=== PATIENT | female | born 1960 | race Caucasian/White ===

== ENCOUNTER 2024-06-11 06:24 | Day surgery (SDC) | payer OTHER, SELFPAY ==
[2024-06-05 10:20] VITALS: BMI 25.4
[2024-06-11] VITALS (15 sets, daily range): BP systolic 105–132; BP diastolic 55–74; PULSE 72–100; RESP 15–21; TEMP 35.9–36.9; O2SAT 94–100; BMI 24.6; BMI 27.4
--- NOTE | 2024-06-11 | PATH_ITS ---
[facility] Accession Number: [id number] No. of containers..01 Tissue . 01 Material submitted: . uterus - CERVIX, UTERUS, BILATERAL FALLOPIAN TUBES, OVARIES . 01 Diagnosis: CERVIX, UTERUS, BILATERAL FALLOPIAN TUBES AND OVARIES, LAPAROSCOPIC TOTAL HYSTERECTOMY AND BILATERAL SALPINGO-OOPHORECTOMY (WEIGHT 48 GRAMS): Cervix with no significant histomorphologic abnormality. Endocervix with no significant histomorphologic abnormality. Endometrium with features of cystic atrophy; negative for endometrioid intraepithelial neoplasia or malignancy. Myometrium with adenomyosia. Uterine serosa with no significant histomorphologic abnormality. Right fallopian tube with features of previous tubal ligation at gross examination and with benign paratubal cysts (up to 6 mm); negative for significant atypia. Left fallopian tube with features of previous tubal ligation at gross examination and with benign paratubal cysts (up to 6 mm); negative for significant atypia. Right ovary with small, benign inclusion cysts; negative for significant atypia. Left ovary with small, benign inclusion cysts; negative for significant atypia. [facility] 06/18/2024 1234 Local . 01 Electronically signed: . Tereza oBrges MD, Pathologist NPI- [id number] . 01 Gross description: . Received in formalin with two identifiers and cervix, uterus, bilateral fallopian tubes and ovaries, is an intact uterus (48 grams, 7.9 cm superior to inferior, 4.5 cm medial to lateral, 2.5 cm anterior to posterior) with attached cervix (2.4 x 2.4 cm), left fallopian tube (5.2 x 0.7 cm), left ovary (4 grams, 4.3 x 1.2 x 0.9 cm), right fallopian tube (4.4 x 0.4 cm), right ovary (2 grams, 2.6 x 1.4 x 1.0 cm). . The ectocervix is pink-de león and smooth with a patulous os 0.7 cm in diameter. The anterior paracervical margin is inked blue while the posterior paracervical margin is inked black. The serosa is de león and smooth with no evidence of hemorrhage or adhesion identified. The endocervical canal has de león herringbone mucosa and measures 2.5 cm in length. The endometrial cavity measures 1.6 cm from cornu to cornu, and 3.7 cm in length with de león velvety endometrium that averages 0.1 cm thick. The myometrium is de león and mildly trabecular and up to 1.3 cm in maximum thickness with no lesions identified. . Both tubes have violaceous, smooth serosa with cystic structures up to 0.6 cm in greatest dimension filled with cloudy serous fluid. The left tube is inked blue while the right tube is inked green. Both tubes have attached clips consistent with previous tubal ligation. The remaining lumen are stellate and unremarkable. . Both ovaries have a de león, cerebriform external surface with the left ovary inked blue and the right ovary inked green. The cut surfaces are physiologic and unremarkable with no cysts or lesions identified. . Information Technology Architect sections are submitted as follows: A1: Anterior cervix. A2: Posterior cervix. A3: Anterior full thickness section. A4: Posterior full thickness section. A5: Left fallopian tube to include one-half of bisected fimbriae and cross-sections. A6: Right fallopian tube to include one-half of bisected fimbriae and corss-sections. A7: Left ovary. A8: Right ovary. ([id number]) /TIMOTHY 06/14/2024 0402 Local . 01 Pathologist provided ICD-10: N81.10 . 01 CPT . 414927 Specimen Comment: A courtesy copy of this report has been sent to [phone] Performed at: [address] [address] [address], [place], [place] [id number] MD Avinash Stover MD Phone: [phone]
[2024-06-11] MEDS: ACETAMINOPHEN 325 MG TABLET 975 MG PO (06:55)
[2024-06-11] MEDS: SCOPOLAMINE 1 PATCH TOP (06:55)
[2024-06-11] MEDS: LACTATED RINGERS 1,000 ML 42 ML IV ×2 (06:55→09:34)
--- NOTE | 2024-06-11 07:33 | PM.PREOP ---
Pre-operative Note COVID-19 COVID-19 status: Not tested Interval Note History & Physical reviewed/Exam performed by Physician: Yes Changes to H&P: No
[2024-06-11] MEDS: CEFAZOLIN 2 GM/100 ML PREMIX 100 ML IV (08:02)
[2024-06-11] MEDS: BUPIVACAINE 0.5% W/ EPI (PF) 10 ML VIAL 30 ML INJ (08:31)
[2024-06-11] MEDS: ROPIVACAINE 0.2% PF 2 MG/ML 10ML AMP 20 ML INJ (10:24)
--- NOTE | 2024-06-11 11:24 | P.OP_ITS ---
Operative Date/Time/Diagnoses Date of procedure: 06/11/24 Time of procedure: 08:00 Pre-op diagnosis: Stage III cystocele Stage II uterovaginal prolapse Post-op diagnosis: same Procedure & Clinicians Procedure: Procedures Operation Date: 06/11/24 07:45 Actual Procedure Side Surgeon p Laparoscopic Total Hysterectomy with bilateral salipingo-oophorectomy s Laparoscopic uterosacral ligament vault suspension Fawad Douglas MD s Anterior colporrhaphy Fawad Douglas MD Indications: Karrie is a 64-year-old , LMP at age 49, who presents with a several day history of what she believes is vaginal prolapse. She was seen in the urgent care clinic a few days ago and that suspicion was confirmed. 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 She has not had any postmenopausal bleeding and is not on hormone replacement therapy. Obstetrical history is notable for 3 spontaneous vaginal births with her largest being 9 lb. She did experienced obstetrical trauma with each delivery. Following her 3rd delivery she had stress urinary incontinence which was treated with performance of a Butcher procedure. Patient has minimal BRENDEN now. The patient is sexually active. Pap obtained and submitted and is normal. We had an extended discussion about pelvic organ prolapse, the nature of her specific prolapse issues, atrophic vaginitis, and options for treatment/mitigation of her pelvic organ prolapse and related symptoms. We di scussed surgery but we also had an extensive discussion on pessary use including its potential benefits and use fundus for patients who have pqcg-ti-oylegqmm prolapse and prefer to avoid surgery. She had numerous questions which were answered during the course of our discussion and she was provided with written information regarding pessary use pelvic organ prolapse, and estrogen vaginal support. After consideration of all options, the patient has decided to proceed with total laparoscopic hysterectomy with bilateral salpingo-oophorectomy, laparoscopic uterosacral ligament vault suspension, and anterior colporrhaphy. She presents today for her scheduled surgery. Surgeon: Fawad Douglas Sql Ssrs Developer: Ritu Cao Anesthesia Type: General Operative Notes Findings: The uterus is small, normal in size and shape, and mobile. There were no abn ormalities of the anterior cul-de-sac. The tubes and ovaries both appeared normal. The remainder of the abdomen and pelvis were normal to laparoscopic visualization. A stage III cystocele is present, and second-degree uterovaginal prolapse is noted. First-degree rectocele is present asymptomatic. Closure Type: primary Specimen(s): right tube & ovary and uterus Applied: catheter Estimated blood loss (mL): 50 Blood products transfused: none Procedure in detail: With the patient in modified dorsal lithotomy position preparations were made by prepping and draping the patient in usual manner for vaginal surgery and insertion of Ram catheter. A pre-surgical time-out was then taken in accordance with [facility] [place] policy. A bivalve speculum was then placed in the vagina and the cervix visualized. A weighted speculum was inserted in the vagina and the anterior vaginal wall inspected. A Ram catheter was inserted in the bladder and the UVJ was identified by palpation of the Ram bulb. The anterior vaginal wall was inspected and the midline infiltrated with 0.5% Marcaine with epinephrine all the way from the urethrovesical junction to the cervical vaginal reflection. The midline was then incised with a scalpel and the mucosa dissected laterally on both sides so as to expose the lateral aspect the pubis cervical fascia and the bladder base. A 3 layer plication of these tissues was then carried out with 0 Vicryl interrupted and reduction of the cystocele was excellent. Done in portion of vaginal mucosa was then excised. The uppermost portion of the incision was closed with 0 Vicryl interrupted and the lower portion closed with 0 Vicryl in a running interlocking stitch. Hemostasis was excellent. The anterior lip of the cervix was then grasped with a single-tooth tenaculum. The uterus was sounded to 7 cm, the endocervical canal dilated slightly, and a VCare uterine manipulator with a small colpotomy cup was placed. The umbilicus was then infiltrated with 0.5% Marcaine with epinephrine. A 1 cm umbilical incision was made transversely and a Veress needle was used to insufflate the abdominal cavity with carbon dioxide. Once the abdomen was appropriately insufflated, a 5 mm trocar and sleeve were then placed through the umbilical incision. The scope was placed through the trocar and the initial assessment of the intra-abdominal contents carried out. A 2nd and 3rd 5 mm port was then placed 1st in the right mid quadrant from then the left mid quadrant by infiltration of the skin and subcutaneous tissues, a 1 cm transverse incision and insertion of the 5 mm bladeless port. A 4th 5 mm trocar was introduced deep in the right lower quadrant in a similar fashion. Using a 4 puncture technique, the abdomen and pelvis were inspected laparoscopy and photographically documented. The uterosacral ligaments were identified on both sides and the lateral edges of the uterosacral ligaments were marked with small dots created by monopolar cautery on cutting current at 20 w so as to be able to identify the lateral margins of the uterosacral ligaments at the time of uterosacral vault suspension. Uterus is mobilized with the VCare manipulator and attention turned to the left adnexa. The distal tube was then grasped and the fimbria varicose divided after coagulation with the PowerSeal device. The dissection was then carried out toward the cornua and the fallopian tube amputated. The tube was removed through a 5 mm port and dissection was then carried down using the PowerSeal device so as to divide the utero-ovarian ligament and the round ligament with blunt and sharp dissection of the broad down to the level of the uterine artery. The uterine artery was then skeletonized after development of a bladder flap, coagulated, and divided. Once hemostasis was assured on the left side attention was turned to the right and the tube, utero-ovarian ligament, round ligament, and broad ligament were dissected in a fashion exactly the same as it had been on the left. The right uterine artery was then visualized after skeletonization and coagulated and divided. The uterus was seen to genaro after coagulation of both your arteries and the cup was identified through the vaginal muscularis at its insertion with the body of the cervix. Circumferential excision of the vaginal cup was accomplished without difficulty using monopolar current and the uterus mobilized. The uterus was then removed through the vagina and the vaginal cuff was closed with a 2-0 Stratafix suture introduced through the vaginal canal and incorporating the distal aspects of the uterosacral ligaments on both sides. Hemostasis was excellent, the abdomen was re-insufflated, and the pelvis inspected laparoscopically. Using 2-0 Ethibond suture, 2 sutures were placed on either side so as to incorporate the more proximal portions of the uterosacral ligament on each side to the vaginal cuff. Each suture was tied securely in place with extracorporeal knot pusher. The pelvis was inspected for any abnormality or bleeding, and the ureters were each seen to be peristalsing freely. 20 cc of ropivacaine were instilled into the posterior cul-de-sac. With complete hemostasis assured, the pneumoperitoneum was vented and the ports removed. All of the 5 mm ports were then closed with 4-0 Monocryl on the skin using inverted interrupted sutures. Skin glue was placed and after the glue was dried, an appropriate dressing was applied. Speculum exam showed no vaginal bleeding with excellent suspension of the vaginal apex and anterior vaginal wall. The posterior vaginal wall had minimal laxity in was not felt to warrant repair at this point. The case was then terminated, the patient awakened, and then transferred to PACU after having tolerated the procedure well. Complications: none Post-operative Condition: stable Disposition: PACU Plan for aftercare: Routine PACU care with plans for follow-up in 2 weeks.
[2024-06-11] MEDS: fentaNYL 100 MCG/2 ML INJ IV ×3 (11:31→11:45)
[2024-06-11] MEDS: OXYCODONE IR 5 MG TABLET PO ×3 (11:33→18:12)
[2024-06-11] MEDS: hydrOXYzine HCL 25 MG TABLET PO (11:33)
[2024-06-11] MEDS: ONDANSETRON 4 MG/2 ML INJ IV (11:33)
[2024-06-11] MEDS: HYDROMORPHONE 1 MG INJ IV ×3 (11:33→11:45)
[2024-06-11] MEDS: ACETAMINOPHEN 325 MG TABLET 650 MG PO (15:45)
[2024-06-11] MEDS: LACTATED RINGERS 1,000 ML 100 ML IV (15:46)
[2024-06-11] MEDS: NICOTINE 21 MG PATCH TOP (18:12)
[2024-06-11] MEDS: KETOROLAC 30 MG/ML VIAL IV (19:48)
[2024-06-11] MEDS: METFORMIN XR 500 MG TABLET PO (20:35)
[2024-06-11] MEDS: ATORVASTATIN 20 MG TABLET 10 MG PO (20:35)
[2024-06-11] MEDS: lisinopriL 20 MG TABLET 10 MG PO (20:36)
[2024-06-12] MEDS: ACETAMINOPHEN 325 MG TABLET 650 MG PO (06:36)
[2024-06-12] MEDS: PANTOPRAZOLE DR 20 MG TABLET PO (06:36)
[2024-06-12] MEDS: KETOROLAC 30 MG/ML VIAL IV (06:36)
[2024-06-12 07:40] VITALS: BP 103/46; PULSE 82; RESP 16; TEMP 36.8; O2SAT 96
--- NOTE | 2024-06-12 08:13 | P.DS_ITS ---
History of Present Illness History of Present Illness Date Patient Seen: 06/12/24 Time Patient Seen: 08:13 Chief complaint: Laparoscopic Total Hysterectomy/Colporrhaphy Narrative: Karrie is a 64-year-old , LMP at age 49, who presents with a several day history of what she believes is vaginal prolapse. She was seen in the urgent care clinic a few days ago and that suspicion was confirmed. Gynecologic history includes menarche at age 16 with regular predictable periods until her menses ceased at age 49. She has not had any postmenopausal bleeding and is not on hormone replacement therapy. Obstetrical history is notable for 3 spontaneous vaginal births with her largest being 9 lb. She did experienced obstetrical trauma with each delivery. Following her 3rd delivery she had stress urinary incontinence which was treated with performance of a Butcher procedure. Patient has minimal BRENDEN now. The patient is sexually active. Pap obtained and submitted and is normal. We had an extended discussion about pelvic organ prolapse, the nature of her specific prolapse issues, atrophic vaginitis, and options for treatment/mitigation of her pelvic organ prolapse and related symptoms. We discussed surgery but we also had an extensive discussion on pessary use including its potential benefits and use fundus for patients who have jojk-qz-bweippke prolapse and prefer to avoid surgery. She had numerous questions which were answered during the course of our discussion and she was provided with written information regarding pessary use pelvic organ prolapse, and estrogen vaginal support. After consideration of all options, the patient has decided to proceed with total laparoscopic hysterectomy with bilateral salpingo-oophorectomy, laparoscopic uterosacral ligament vault suspension, and anterior colporrhaphy. She presents today for her scheduled surgery. Discharge Providers Provider Date of admission: 06/11/2024 Discharge Date: 06/12/24 Primary care physician: LARRY Roque Discharge provider: Fawad Douglas MD Summary Hospital Course Discharge Diagnosis: Stage III Cystocele Stage II uterovaginal prolapse s/p TLH w/ BSO, laparoscopic USL vault suspension, anterior colporrhaphy Hospital Course: Ritu was admitted on 06/11/2024 and underwent an uneventful total laparoscopic hysterectomy with bilateral salpingo oophorectomy, laparoscopic uterosacral ligament vault suspension, and anterior colporrhaphy. Full details of the procedure well summarized on my operative note of that date. Following surgery the patient has done extremely well with prompt return of bowel and bladder function, she is ambulating independently, tolerating regular diet, and her pain is well controlled with oral pain medications. She will be discharged at this time to home after counseling regarding precautionary symptoms, limitations of activity, medications, plans for follow-up which will be in 2 weeks. Medications at discharge will include resumption of all preadmission medications as well as oxycodone 5 mg p.o. every 6 hours as needed for pain, and Cipro 500 mg p.o. b.i.d. x5 days for UTI prophylaxis following catheterization. Status at Discharge Cognitive/behavioral status at discharge: oriented Functional status at discharge: independent ambulation Overall status at discharge: patient is back to baseline Time Spent with Patient Time spent: Less than 30 minutes Exam Vital Signs (past 8 hours): - 06/12/24 07:40 Temperature 98.2 F Pulse Rate 82 Respiratory Rate 16 Blood Pressure 103/46 L Pulse Oximetry 96 Oxygen Flow Rate 0 Oxygen Delivery Method Room Air Oxygen Flow Rate 0 Const General: cooperative and comfortable Nutritional Appearance: average body habitus Orientation: alert and oriented x3 HENMT Head: normal to inspection, atraumatic and abrasion Ears: hearing grossly normal bilaterally Face and sinus: face symmetric Eyes General: appearance normal, both eyes and all related structures Conjunctivae: conjunctivae normal Sclera: sclerae normal EOM: EOM intact bilaterally Neck Neck: normal visual inspection Resp Effort & Inspection: normal respiratory effort and able to speak in complete sentences Auscultation: clear to auscultation bilaterally Cardio Rate: regular rate Rhythm: regular rhythm Heart Sounds: S1 normal, S2 normal and no murmurs GI Inspection: normal to inspection and incision (Surgical dressings clean and dry) Palpation: soft, no hepatosplenomegaly and tender (Mild, diffuse postsurgical tenderness) External Female Exam: other (No significant bleeding noted) Extrem General: no calf tenderness Psych Appearance: grossly normal Mental Status: mental status grossly normal Speech and Movement: speech and movement normal Mood: congruent mood Affect: normal affect Attitude: cooperative Thought Process: normal Thought Content: normal Judgment: judgment good [facility] Medical History (Updated 06/05/24 @ 10:26 by Ute Calderón RN) Diabetes HLD (hyperlipidemia) HTN (hypertension) Social History household members: none Smoking Status: Current some day smoker alcohol intake: current Discharge Assessment & Plan Assessment and Plan Assessment: Stage III Cystocele Stage II uterovaginal prolapse s/p TLH w/ BSO, laparoscopic USL vault suspension, anterior colporrhaphy Plan of Treatment: Routine postoperative care with follow-up planned for 2 weeks postop Discharge Plan Discharge Plan Patient Disposition: Home Provider Discharge Comment: Please review the written instructions you received when you were discharged from the hospital. Your follow-up appointment is scheduled for 2 weeks after your surgery and I look forward to seeing you then. If however in the meantime you have any issues, concerns, or questions, contact me either through the office phone at [phone], or via the patient portal. Discharge orders & Medications Discharge Orders: Discharge (Order); Ordered 06/12/24 Ordered By: Fawad Douglas Prescriptions: New ciprofloxacin HCl [Cipro] 500 mg tablet 500 mg PO BID Qty: 10 0RF Continued simvastatin 20 MG tablet 20 mg PO HS Qty: 0 lisinopril 20 mg tablet 10 mg PO QPM Qty: 0 omeprazole 20 mg capsule,delayed release(DR/EC) 20 mg PO DAILY metformin 500 mg tablet extended release 24 hr 500 mg PO BID Ozempic 2 mg/dose (8 mg/3 mL) pen injector 2 mg SUBCUT WEEKLY aspirin 81 mg Tablet 81 mg PO DAILY Follow up/Referrals: Judith Zuniga ARNP [Primary Care Provider] - Fawad Douglas MD [Physician] - Diet/Activity/Treatments Diet: Diet as Tolerated Activity: As tolerated Other treatments: Zpts-qso-ocdrgsz Tylenol and/or ibuprofen may be used as needed for additional pain relief. Bfni-hjp-gckeqvz stool softeners and/or MiraLax may be used as needed for constipation. Skin/Wound/Dressing Care Report to your healthcare provider any signs of infection, such as:: chills, fever, increased pain, unusual drainage and unusual redness Dressing: Dressings should be removed on the morning of 06/13/2024 Visit Report/Discharge Packet Instructions: DI for Hysterectomy, DI for Laparoscopy, DI for Prescription Opioid Use Stand Alone Forms: Surgery Discharge Print Language: Latvian Discharge Data Primary Care Provider: Judith Zuniga Attending Provider: Fawad Douglas Quality VTE Deep Vein Thrombosis/Pulmonary Embolism Present on Admission: No
[2024-06-12] MEDS: OXYCODONE IR 5 MG TABLET PO (08:52)
[2024-06-12] MEDS: METFORMIN XR 500 MG TABLET PO (08:52)
--- NOTE | 2024-06-12 10:08 | CM.DANOTE ---
DCP Assessment Note: Pt is a 64yo female, resident of [place], is s/p laparoscopic total hysterectomy. Pt lives in a house with her dogCarlee. Pt's Primary Care Provider is HILARY Black and insurance is [employer] [facility]. Reviewed chart and team rounds for pt's medical status and initial discharge needs. DCP met w/patient at bedside; introduced self and role. Patient was found in bed, alert and oriented, cooperative with assessment. Pt confirmed living situation and good support in sister but is independent at baseline. Pt expressed preference in discharging home, did not identify any discharge needs. Plan: Discharge orders in, pt to discharge home with sister to transport. CM team will follow closely for coordination of discharge plans. FADI Leiva Discharge Planning/Care Management CM Discharge Assessment Start: 06/12/24 10:07 Freq: Status: Active Protocol: Document 06/12/24 10:07 MW (Rec: 06/12/24 10:08 MW [id number]) Discharge Planning Assessment Assigned Licensed Therapist TG Fonseca DPOA/Assigned Designee Name Leigha Sister Hernandez Contact Information [phone] Advance Directives? No Advance Directives on File No History Provided By Patient,Medical Record Has Patient been admitted in last 30 No days? Prior Living Arrangements House Household Members none Comment Dog, Honey Type of transporation used prior to Drives own vehicle admit Independent with ADL's Yes Is patient alert and oriented? Yes Caregiver for Another No Discharge Plan Home Transportation Arrangement Leigha Review Status In Process Please Provide Date Initial DC 06/12/24 Assessment Was Performed Next Review Type Continued Stay Review
[2024-06-12] MEDS: HYDROMORPHONE 1 MG INJ IV (10:16)
--- NOTE | 2024-06-12 10:41 | PC.NURSE ---
VSS. Afebrile. Pt verbalized understanding of D/C instructions, when to follow up surgeon in 2 weeks and when to remove the bandages and when to the return to the hospital/ED if needed. All questions answered. Pt wheeled out to POV with SURGICAL [employer]CE[employer] FABRICATOR. Pt's driven home by family member.
== END 2024-06-12 10:30 | disposition home or self-care (01) ==
LOC: OR 06:25 → AC 09:18
PROVIDERS: PCP Nurse Practitioner Family; Referring Provider Obstetrics & Gynecology; Visit Provider Obstetrics & Gynecology
PROC: 0UT94ZZ Resection of Uterus, Percutaneous Endoscopic Approach (ICD-10-PCS; CPT 57425; principal; 2024-06-11 07:45)
PROC: (CPT 57425; 2024-06-11 07:45)
DX: N81.2 Incomplete uterovaginal prolapse (principal); N80.03 Adenomyosis of the uterus; N83.8 Other noninflammatory disorders of ovary, fallopian tube and broad ligament; N83.292 Other ovarian cyst, left side
CPT/HCPCS: 57425; 58571; 57240; 57283; 82962; A9270; J0690; J1100; J1171; J1885; J2250; J2405; J2704; J2795; J3010

== ENCOUNTER → 2025-01-31 09:42 | Outpatient (CLI) | payer OTHER, SELFPAY ==
[2024-06-11 12:26] VITALS: BMI 27.4
--- NOTE | 2025-01-31 09:44 | DI.MRI.S_ITS ---
PROCEDURE: MR PELVIS WO/W CON INDICATIONS: Apical vaginal pain/tenderness s/p TLH + apical suspension TECHNIQUE: Coronal HASTE, sagittal breath-hold T2 FSE; axial T1 FSE with and without fat saturation through the pelvis. Optional long- and short-axis uterine nonbreath-hold T2 FSE through the uterus. Sagittal or axial dynamic VIBE during administration of contrast. Post-contrast axial or coronal VIBE/2-D FLASH with fat saturation from the iliac crests to the symphysis. Optional diffusion weighted imaging and ADC may be performed. COMPARISON: None. FINDINGS: Image quality: Diagnostic Lower abdomen: No bowel obstruction. Increased colonic fecal loading partially seen. Colonic diverticula. Bladder: Unremarkable Reproductive organs: Uterus is absent. No fluid collection or mass lesion at the vaginal cuff. Rectum: Unremarkable Vessels and lymph nodes: No enlarged lymph nodes by size criteria. No aneurysmal artery identified Pelvic wall: Unremarkable Bones: No aggressive appearing osseous abnormality. IMPRESSION: Vaginal cuff postsurgical changes. No discrete mass or fluid collection in the vicinity. There are colonic diverticula and increased colonic fecal loading, partially seen. Dictated by: Benedict Talbot M.D. on 02/01/2025 at 8:21 Approved by: Benedict Talbot M.D. on 02/01/2025 at 8:25
== END ==
LOC: MRI 09:43
PROVIDERS: PCP Nurse Practitioner Family; Referring Provider Obstetrics & Gynecology; Visit Provider Obstetrics & Gynecology
DX: N94.12 Deep dyspareunia (principal); Z90.710 Acquired absence of both cervix and uterus
CPT/HCPCS: 72197; A9579

== ENCOUNTER → 2025-03-10 15:41 | Outpatient (CLI) | payer OTHER, MEDICARE, SELFPAY ==
[2024-06-11 12:26] VITALS: BMI 27.4
[2025-03-10 17:14] LABS: Appearance Urine UA CLEAR; Bilirubin Urine UA NEGATIVE (NEGATIVE); Color Urine UA YELLOW; Glucose Urine UA NEGATIVE (Negative); Ketones Urine UA NEGATIVE (NEGATIVE); Leukocyte Esterase Urine UA NEGATIVE (NEGATIVE); Nitrite Urine UA NEGATIVE (Negative); Occult Blood Urine UA NEGATIVE (Negative); Protein Urine UA NEGATIVE (Negative); Specific Gravity Urine UA 1.010 (1.000-1.035); Urobilinogen Urine UA 0.2 E.U./dL (0.2)
[2025-03-10 17:19] LABS: pH Urine UA 6.0 (4.5-8.0)
[2025-03-10 17:25] LABS: Culture Indicated Urine Cult Not Indicated
== END ==
PROVIDERS: PCP Nurse Practitioner Family; Visit Provider Obstetrics & Gynecology Gynecology
DX: N81.6 Rectocele (principal); N95.2 Postmenopausal atrophic vaginitis; N81.2 Incomplete uterovaginal prolapse; N94.12 Deep dyspareunia; N81.9 Female genital prolapse, unspecified; N39.3 Stress incontinence (female) (male); Z68.24 Body mass index [BMI] 24.0-24.9, adult
CPT/HCPCS: 51701; 81001; 99215

== ENCOUNTER → 2025-04-16 08:52 | Outpatient (CLI) | payer OTHER, MEDICARE, SELFPAY ==
[2024-06-11 12:26] VITALS: BMI 27.4
== END ==
PROVIDERS: PCP Nurse Practitioner Family; Visit Provider Obstetrics & Gynecology Gynecology
DX: N39.3 Stress incontinence (female) (male) (principal)
CPT/HCPCS: 87086

== ENCOUNTER 2025-05-02 08:32 | Emergency (ER) | payer OTHER, MEDICARE, SELFPAY ==
[2024-06-11 12:26] VITALS: BMI 27.4
[2025-05-02] VITALS (24 sets, daily range): BP systolic 94–132; BP diastolic 50–67; PULSE 76–104; RESP 12–24; TEMP 37; O2SAT 91–99; BMI 24.5
--- NOTE | 2025-05-02 08:38 | EKG_ITS ---
[facility]
--- NOTE | 2025-05-02 08:48 | DI.RAD.S_ITS ---
PROCEDURE: XR CHEST 1V
--- NOTE | 2025-05-02 08:51 | ED_ITS ---
HPI - General Adult
--- NOTE | 2025-05-02 08:51 | ED.GENADULT ---
HPI - General Adult General Chief complaint: Syncope Stated complaint: Near Syncope Time Seen by Provider: 05/02/25 08:48 Source: EMS Mode of arrival: EMS History of Present Illness HPI narrative: 65 years old female with history of hypertension, diabetes brought in by an ambulance today for near syncope. She was at the kitchen this morning and fell sweating, lightheadedness then she lower herself down on the floor without injury, passing out, chest pain, shortness of breath, headache, head injury. She has had right lower abdominal pain worsening for the last 5 days without any injury, heavy lifting, heavy exercise, bowel or bladder incontinence or retention, numbness weakness on her legs, abdominal pain. She made it to the bathroom and had normal bowel movement and urination but after finish she lower herself down on the floor since lightheadedness and could not get back up. She called 911 and was brought into the ED. she otherwise denied any runny nose, sore throat, coughing, fever, nausea vomiting. She was given 1 L normal saline on the way to our ED. Related Data Home Medications ?Medication ?Instructions ?Recorded ?Confirmed simvastatin 20 mg tablet 20 mg PO HS ##0 06/04/16 04/14/25 omeprazole 20 mg capsule,delayed 20 mg PO DAILY 05/19/24 04/14/25 release metformin 500 mg tablet,extended 500 mg PO BID 06/05/24 04/14/25 release 24 hr semaglutide 2 mg/dose (8 mg/3 mL) 2 mg SUBCUT WEEKLY 06/05/24 04/14/25 subcutaneous pen injector (Ozempic) aspirin 81 mg tablet 81 mg PO DAILY 06/10/24 04/14/25 lisinopril 10 mg tablet 10 mg PO DAILY blood pressure 03/10/25 04/14/25 Previous Rx's ?Medication ?Instructions ?Recorded estradiol 0.01% (0.1 mg/gram) 1 g vaginal 3XW #42.5 grams 07/23/24 vaginal cream gabapentin 800 mg tablet 800 mg PO BEDTIME #30 tabs 01/27/25 oxycodone 5 mg tablet 5 mg PO Q8H PRN pain #20 tabs 04/14/25 Allergies Allergy/AdvReac Type Severity Reaction Status Date / Time No Known Drug Allergies Allergy Verified 04/14/25 13:47 Review of Systems Review of Systems Narrative: Positive for near syncope, right low back pain. Negative for fever, runny nose, sore throat, coughing, chest pain, shortness of breath, numbness weakness on her legs, bowel or bladder incontinence or retention, abdominal pain, nausea vomiting. Patient History Medical History (Updated 05/02/25 @ 13:15 by Linda Helms MD) Stress incontinence, female Vaginal vault prolapse Diabetes HLD (hyperlipidemia) HTN (hypertension) Surgical History (Updated 07/23/24 @ 13:44 by Fawad Douglas MD) History of total hysterectomy with bilateral salpingo-oophorectomy (BSO) Social History household members: none Smoking Status: Current every day smoker alcohol intake: current Smoking Status: Current every day smoker Exam Narrative Exam Narrative: GENERAL: Awake alert without acute distress. HEAD: Atraumatic. Normocephalic. NECK: Trachea midline. Non tender CARDIOVASCULAR: Regular rate and rhythm without murmurs, gallops, or rubs. RESPIRATORY: Clear to auscultation. Breath sounds equal bilaterally. No wheezes, rales, or rhonchi. GASTROINTESTINAL: Abdomen soft, non-tender, nondistended. EXTREMITIES: No edema or joint tenderness. BACK: Tenderness on palpation right paraspinal muscle and midline lumbar spine without step-off. NEURO: AOx3. Positive straight leg raising test on the right leg. Normal sensation and 5/5 ankle flexion and extension on both legs. SKIN: No rash or erythema of visible areas Initial Vital Signs Initial Vital Signs: Vital Signs Pulse Rate 92 H 05/02/25 08:34 Pulse Oximetry 95 05/02/25 08:34 Course Orders Ordered: Discontinued Medications Hydromorphone HCl (Hydromorphone Hcl 0.5 Mg/0.5 Ml Syringe) 0.5 mg IV NOW ONE Stop: 05/02/25 09:23 Last Admin: 05/02/25 09:32 Dose: 0.5 mg Documented By: JENNIFER Lactated Ringer's (Lactated Ringers) 500 mls @ 1,000 mls/hr IV BOLUS ONE Stop: 05/02/25 14:02 Last Infusion: 05/02/25 15:00 Dose: Infused Documented By: Admin: 05/02/25 13:57 Dose: 1,000 mls/hr Documented By: JENNIFER Vital Signs Vital signs: Vital Signs - 8 hr 05/02/25 10:00 05/02/25 10:30 05/02/25 11:00 Pulse Rate 83 78 84 Pulse Rate [Orthostatic Lying] Pulse Rate [Orthostatic Sitting] Pulse Rate [Orthostatic Standing] Respiratory Rate 12 13 15 Blood Pressure Blood Pressure [Orthostatic Lying] Blood Pressure [Orthostatic Sitting] Blood Pressure [Orthostatic Standing] Pulse Oximetry 95 96 94 05/02/25 11:01 05/02/25 11:01 05/02/25 11:03 Pulse Rate 84 97 H Pulse Rate [Orthostatic Lying] Pulse Rate [Orthostatic Sitting] Pulse Rate [Orthostatic Standing] Respiratory Rate 15 17 Blood Pressure 109/59 L Blood Pressure [Orthostatic Lying] Blood Pressure [Orthostatic Sitting] Blood Pressure [Orthostatic Standing] Pulse Oximetry 95 95 05/02/25 11:03 05/02/25 11:05 05/02/25 11:05 Pulse Rate 103 H Pulse Rate [Orthostatic Lying] Pulse Rate [Orthostatic Sitting] Pulse Rate [Orthostatic Standing] Respiratory Rate Blood Pressure 103/58 L 103/59 L Blood Pressure [Orthostatic Lying] Blood Pressure [Orthostatic Sitting] Blood Pressure [Orthostatic Standing] Pulse Oximetry 95 05/02/25 11:07 05/02/25 11:07 05/02/25 11:12 Pulse Rate 87 Pulse Rate [Orthostatic Lying] 82 Pulse Rate [Orthostatic Sitting] 97 H Pulse Rate [Orthostatic Standing] 104 H Respiratory Rate 18 Blood Pressure 132/63 Blood Pressure [Orthostatic Lying] 109/59 L Blood Pressure [Orthostatic Sitting] 103/58 L Blood Pressure [Orthostatic Standing] 103/59 L Pulse Oximetry 95 05/02/25 11:30 05/02/25 11:30 05/02/25 12:30 Pulse Rate 80 Pulse Rate [Orthostatic Lying] Pulse Rate [Orthostatic Sitting] Pulse Rate [Orthostatic Standing] Respiratory Rate 14 Blood Pressure 112/59 L 108/67 Blood Pressure [Orthostatic Lying] Blood Pressure [Orthostatic Sitting] Blood Pressure [Orthostatic Standing] Pulse Oximetry 92 05/02/25 12:30 05/02/25 12:53 05/02/25 12:54 Pulse Rate 85 Pulse Rate [Orthostatic Lying] 90 Pulse Rate [Orthostatic Sitting] 84 Pulse Rate [Orthostatic Standing] 78 Respiratory Rate 24 Blood Pressure 104/57 L Blood Pressure [Orthostatic Lying] 103/60 Blood Pressure [Orthostatic Sitting] 94/54 L Blood Pressure [Orthostatic Standing] 104/57 L Pulse Oximetry 93 05/02/25 12:54 05/02/25 13:00 05/02/25 13:00 Pulse Rate 78 76 Pulse Rate [Orthostatic Lying] Pulse Rate [Orthostatic Sitting] Pulse Rate [Orthostatic Standing] Respiratory Rate 14 15 Blood Pressure 123/57 L Blood Pressure [Orthostatic Lying] Blood Pressure [Orthostatic Sitting] Blood Pressure [Orthostatic Standing] Pulse Oximetry 94 94 05/02/25 13:30 05/02/25 13:30 05/02/25 14:00 Pulse Rate 84 84 Pulse Rate [Orthostatic Lying] Pulse Rate [Orthostatic Sitting] Pulse Rate [Orthostatic Standing] Respiratory Rate 20 23 Blood Pressure 100/50 L Blood Pressure [Orthostatic Lying] Blood Pressure [Orthostatic Sitting] Blood Pressure [Orthostatic Standing] Pulse Oximetry 94 92 05/02/25 14:01 05/02/25 14:01 05/02/25 17:16 Pulse Rate 84 Pulse Rate [Orthostatic Lying] 82 Pulse Rate [Orthostatic Sitting] 94 H Pulse Rate [Orthostatic Standing] 101 H Respiratory Rate 20 Blood Pressure 114/63 Blood Pressure [Orthostatic Lying] 115/66 Blood Pressure [Orthostatic Sitting] 116/59 L Blood Pressure [Orthostatic Standing] 122/60 Pulse Oximetry 93 Medical Decision Making Lab Data 05/02/25 08:44 05/02/25 08:44 Labs: Lab Results 05/02/25 05/02/25 05/02/25 Range/Units 08:44 11:05 13:30 WBC 8.6 (4.5-11.0) X10^3/uL RBC 4.36 (4.0-5.2) X10^6/uL Hgb 14.1 (12.0-16.0) g/dL Hct 40.5 (36-46) % MCV 92.8 (80-100) fL MCH 32.3 (26-34) PG MCHC 34.8 (30-36) % RDW 11.8 (11.6-14.8) % Plt Count 185 (150-400) X10^3/uL Neut % (Auto) 79.5 H (50-75) % Lymph % (Auto) 16.5 L (25-40) % [place] % (Auto) 3.2 (3-14) % Eos % (Auto) 0.5 L (2-4) % Baso % (Auto) 0.3 (0-2) % Neut # (Auto) 6900 (7396-6454) /uL Lymph # (Auto) 1400 (1485-0936) /uL [place] # (Auto) 300 (0-900) /uL Eos # (Auto) 0 (0-450) /uL Baso # (Auto) 0 (0-100) /uL D-Dimer 1196 H (<500) ng/ml Sodium 140 (137-145) mmol/L Potassium 4.2 (3.4-5.1) mmol/L Chloride 106 (98-107) mmol/L Carbon Dioxide 25 (22-32) mmol/L BUN 16 (7-17) mg/dL Creatinine 0.70 (0.52-1.04) mg/dL Estimated GFR > 60 (>60) mL/min BUN/Creatinine Ratio 22.9 H (6-22) Glucose 118 H (70-99) mg/dL Calcium 8.8 (8.4-10.2) mg/dL Magnesium 1.8 (1.6-2.3) mg/dL Total Bilirubin 0.4 (0.2-1.3) mg/dL AST 23 (14-36) IU/L ALT 21 (<35) IU/L Alkaline Phosphatase 58 (38-126) U/L Troponin I < 0.012 (0.01-0.034) ng/mL Total Protein 6.8 (6.3-8.2) g/dL Albumin 4.2 (3.5-5.0) g/dL Globulin 2.6 (1.7-4.1) g/dL Albumin/Globulin Ratio 1.6 (1.0-2.8) Lipase 125 (23-300) U/L Urine Color Yellow Urine Appearance Clear Urine pH 7.0 (4.5-8.0) Ur Specific [place] 1.010 (1.000-1.035) Urine Protein Negative (Negative) Urine Glucose (UA) Negative (Negative) g/dL Urine Ketones Negative (NEGATIVE) Urine Occult Blood Negative (Negative) Urine Nitrate Negative (Negative) Urine Bilirubin Negative (NEGATIVE) Urine Urobilinogen 0.2 (0.2) E.U./dL Ur Leukocyte Esterase Negative (NEGATIVE) Urine RBC None seen (0-5/HPF) Urine WBC None seen (0-5/HPF) Ur Squamous Epith Cells 1-5 /hpf (0-5/HPF) Urine Bacteria None seen (None) Ur Culture Indicated? Cult not indicated Vol Urine Centrifuged 10ml (spun) Urine Dip Bedside Urine Glucose Negative Bedside Urine Bilirubin - Negative Bedside Urine Ketone - Negative Urine Specific [place] 1.005 Bedside Urine Occult Blood - Negative Bedside Urine pH 6.5 Bedside Urine Protein +/- 15 Bedside Urine Urobilinogen - Negative Bedside Urine Nitrite - Negative Bedside Urine Leukocytes - Negative Esterase Point of care testing: Urine Dip Bedside Urine Glucose Negative Bedside Urine Bilirubin - Negative Bedside Urine Ketone - Negative Urine Specific [place] 1.005 Bedside Urine Occult Blood - Negative Bedside Urine pH 6.5 Bedside Urine Protein +/- 15 Bedside Urine Urobilinogen - Negative Bedside Urine Nitrite - Negative Bedside Urine Leukocytes - Negative Esterase Imaging Data CT scan - abdomen/pelvis: Radiologist's Impression: PROCEDURE: CT ABDOMEN PELVIS W CON INDICATIONS: Near syncope, right low back pain TECHNIQUE: After the administration of intravenous contrast, axial sections acquired from the lung bases to the pubic symphysis. Coronal and sagittal reformats were performed. For radiation dose reduction, the following was used: automated exposure control, adjustment of mA and/or kV according to patient size. COMPARISON: None. FINDINGS: Image quality: Diagnostic. Lower Chest: No significant findings. ABDOMEN: Liver: No solid mass. Gallbladder: No radiopaque gallstones or wall thickening. Biliary ducts: No biliary dilation. Pancreas: No ductal dilation. Spleen: Size is within normal limits. Adrenal Glands: No adrenal nodules. There is diffuse thickening of the left adrenal gland up to 1.5 cm. Thickening of the right adrenal gland is less prominent up to 1.2 cm. Kidneys and Ureters: No hydronephrosis. No solid mass. No complex renal cystic lesion which requires follow up. Stomach and Bowel: Normal colonic caliber, without significant wall thickening. Scattered colonic diverticula are present without associated inflammation. Peritoneum: No abnormal intraperitoneal fluid. No free air. Ventral Wall: No significant ventral hernia. Abdominal Nodes: No retroperitoneal or mesenteric adenopathy by size criteria. Vessels: Aorta and inferior vena cava are normal in size. PELVIS: Pelvic Organs: The uterus is surgically absent.. Bladder: No bladder wall thickening, accounting for underdistention. Pelvic Nodes: No enlarged lymph nodes. Miscellaneous: No inguinal hernias are seen. Bones: No aggressive osseous abnormality. Vertebral bodies maintain normal height and alignment without fracture. No significant degenerative changes. IMPRESSION: No acute abdominal process. Specifically, no obstruction, appendicitis, diverticulitis, or urolithiasis. Bilateral adrenal hyperplasia. Dictated by: Sruthi Horan M.D. on 05/02/2025 at 9:30 Approved by: Sruthi Horan M.D. on 05/02/2025 at 9:34 CT chest PE protocol: Radiologist's Impression: PROCEDURE: CT ANGIO CHEST PE PROTOCOL INDICATIONS: Near-syncope, positive D-dimer TECHNIQUE: After the administration of intravenous contrast, 2 mm thick sections acquired from the pulmonary apices to the posterior costophrenic angles. 3-dimensional maximum intensity projection (MIP) coronal and sagittal reformats were then acquired through the thorax. For radiation dose reduction, the following was used: automated exposure control, adjustment of mA and/or kV according to patient size. COMPARISON: None. FINDINGS: Image quality: Diagnostic. Pulmonary arteries: Pulmonary arteries are normal in size, and demonstrate no intraluminal filling defects to suggest central pulmonary embolism. Lower Neck: No enlarged lymph nodes. Thyroid: No thyroid nodules which require sonographic follow up, per consensus guidelines. Axillae: No enlarged lymph nodes. Chest Wall: Unremarkable. Bones: Unremarkable. Lungs and Pleura: No pneumothorax or pleural effusions. No consolidation or suspicious nodules. Heart: Heart size is normal. No pericardial effusion. Thoracic Vessels: No aortic aneurysm. Mediastinum and [place]: No enlarged lymph nodes. Esophagus: No wall thickening. No hiatal hernia. Upper Abdomen: Visualized upper abdomen solid organs and bowel loops appear normal. IMPRESSION: No pulmonary embolus. No acute cardiopulmonary process. Dictated by: Sruthi Horan M.D. on 05/02/2025 at 13:41 Approved by: Sruthi Horan M.D. on 05/02/2025 at 13:45 ECG Data Interpretation: EKG showed normal sinus rhythm at 85 beats per minute without ischemic ST-T changes. Normal axis. No prolonged QT. MDM Narrative Additional Information: CBC was normal. His CMP was normal. His magnesium, troponin, lipase were normal. The UA showed no UTI. Her CT scan abdomen and pelvis showed no acute finding. 65 years old female with history of hypertension, diabetes brought in by an ambulance today for near syncope. She was at the kitchen this morning and fell sweating, lightheadedness then she lower herself down on the floor without injury, passing out, chest pain, shortness of breath, headache, head injury. She was given normal saline [address] to our ED. Her CV exam, lung exam, abdominal exam were normal. Her neuro exam was intact without focal deficit. She alert oriented x4 without acute distress. Her CT abdomen and pelvis came back showed no acute finding but battery adrenal hypoplasia. Her CTA chest no acute finding. Her CBC, CMP were normal. Her troponin was negative x2. Her lipase, magnesium were normal. Her D-dimer was high. Her UA showed no UTI. She was given another L of LR and repeat orthostatic hypotension was negative this time. She was walking to the bathroom without lightheadedness. I asked her to follow up with her PCP for bilateral adrenal hyperplasia and possible outpatient endocrine for consult. Discharge Plan Departure Patient Disposition: Home Clinical Impression: Orthostatic hypotension, Near syncope Instructions: DI for Orthostatic Hypotension Activity Restrictions/Additional Instructions: Please drink plenty of fluid. Please come back to the emergency room if any chest pain, shortness of breath, near pass out, pass out, headache, neck pain, abdominal pain, vomiting, dehydration. Please follow up your primary care doctor for bilateral adrenal hyperplasia which was accidental finding on the CAT scan abdomen and pelvis. Possible endocrine consult outpatient from your primary care doctor. Please drink plenty of fluid. Prescriptions: No Action simvastatin 20 MG tablet 20 mg PO HS Qty: 0 gabapentin 800 mg tablet 800 mg PO BEDTIME Qty: 30 2RF omeprazole 20 mg capsule,delayed release(DR/EC) 20 mg PO DAILY estradiol 0.01 % (0.1 mg/gram) cream 1 g vaginal 3XW Qty: 42.5 12RF Rx Instructions: Apply 1 g PV hs x7 days, then PV hs 3 nights weekly metformin 500 mg tablet extended release 24 hr 500 mg PO BID Ozempic 2 mg/dose (8 mg/3 mL) pen injector 2 mg SUBCUT WEEKLY aspirin 81 mg Tablet 81 mg PO DAILY lisinopril 10 mg tablet 10 mg PO DAILY oxycodone 5 mg tablet 5 mg PO Q8H PRN (Reason: pain) Qty: 20 0RF Rx Instructions: postop med Referrals: Judith Zuniga ARNP [Primary Care Provider, Nursing] Stand Alone Forms: Patient Portal/API
--- NOTE | 2025-05-02 08:52 | PC.NURSE ---
Pt presents to ED after two near syncopal episodes, one while standing in kitchen and one after a bowel movement. Pt has continuing weakness and fatigue but denies sob or lightheadedness at this time, AxOx4. Skin is pale and slightly diaphoretic.
[2025-05-02 08:56] LABS: Add Manual Diff / Slide Review NO; Hematocrit 40.5 % (36-46); Hemoglobin 14.1 g/dL (12.0-16.0); Lymphocytes Absolute Auto 1400 /uL (1100-4500); Mean Corpuscular HGB Conc 34.8 % (30-36); Mean Corpuscular Hemoglobin 32.3 PG (26-34); Mean Corpuscular Volume 92.8 fL (80-100); Platelet Count 185 X10^3/uL (150-400)
[2025-05-02 09:01] LABS: Alanine Aminotransferase 21 IU/L (<35); Albumin 4.2 g/dL (3.5-5.0); Albumin Globulin Ratio 1.6 (1.0-2.8); Alkaline Phosphatase 58 U/L (38-126); Blood Urea Nitrogen 16 mg/dL (7-17); Calcium 8.8 mg/dL (8.4-10.2); Carbon Dioxide 25 mmol/L (22-32); Chloride 106 mmol/L (98-107); Estimated Glomerular Filt Rate > 60 mL/min (>60); Globulin 2.6 g/dL (1.7-4.1); Glucose 118 mg/dL (70-99); HEMOLYSIS 17 (0-50); Lipase 125 U/L (23-300); Magnesium 1.8 mg/dL (1.6-2.3); Potassium 4.2 mmol/L (3.4-5.1); Sodium 140 mmol/L (137-145); Total Protein 6.8 g/dL (6.3-8.2)
[2025-05-02 09:13] LABS: Troponin I < 0.012 ng/mL (0.01-0.034)
--- NOTE | 2025-05-02 09:21 | DI.CT.S_ITS ---
PROCEDURE: CT ABDOMEN PELVIS W CON
--- NOTE | 2025-05-02 11:18 | PC.NURSE ---
Report received, care assumed
[2025-05-02 11:26] LABS: Appearance Urine UA CLEAR; Bilirubin Urine UA NEGATIVE (NEGATIVE); Color Urine UA YELLOW; Glucose Urine UA NEGATIVE (Negative); Ketones Urine UA NEGATIVE (NEGATIVE); Leukocyte Esterase Urine UA NEGATIVE (NEGATIVE); Nitrite Urine UA NEGATIVE (Negative); Occult Blood Urine UA NEGATIVE (Negative); Protein Urine UA NEGATIVE (Negative); Specific Gravity Urine UA 1.010 (1.000-1.035); Urobilinogen Urine UA 0.2 E.U./dL (0.2)
[2025-05-02 11:28] LABS: pH Urine UA 7.0 (4.5-8.0)
[2025-05-02 11:30] LABS: Culture Indicated Urine Cult Not Indicated
[2025-05-02] MEDS: LACTATED RINGERS 500 ML 1000 ML IV (13:57)
--- NOTE | 2025-05-02 14:17 | DI.CT.S_ITS ---
PROCEDURE: CT ANGIO CHEST PE PROTOCOL
== END 2025-05-02 17:47 | disposition home or self-care (01) ==
PROVIDERS: Emergency Provider Emergency Medicine; PCP Nurse Practitioner Family
DX: I95.1 Orthostatic hypotension (principal); R10.31 Right lower quadrant pain; M54.50 Low back pain, unspecified
CPT/HCPCS: 36415; 71045; 71275; 74177; 80053; 81001; 81003; 83690; 83735; 84484; 85025; 85379; 93005; 96361; 96374; 99284; J1171; Q9967

== ENCOUNTER 2025-05-10 10:12 | Emergency (ER) | payer OTHER, MEDICARE, SELFPAY ==
[2024-06-11 12:26] VITALS: BMI 27.4
[2025-05-10] VITALS (15 sets, daily range): BP systolic 94–143; BP diastolic 56–82; PULSE 76–93; RESP 15–28; TEMP 36.6; O2SAT 94–99; BMI 24.6
--- NOTE | 2025-05-10 10:26 | EKG_ITS ---
[address] [id number] [address] [address] Test Date: 2025-05-10 Pat Name: Karrie Hernandez Department: Room: Gender: Female Health Information Provider: TAMI : [id number] Requested By: Order Number: [id number] Reading MD: Bruce Pulido MD Measurements Intervals [place] Rate: 91 P: 70 AK: 170 QRS: 83 QRSD: 82 T: 64 QT: 362 QTc: 445 Interpretive Statements Normal sinus rhythm Electronically Signed On 05-11-2025 6:46:26 PST by Bruce Pulido MD
--- NOTE | 2025-05-10 10:47 | ED.DIZZY ---
HPI - Dizziness General Chief Complaint: Syncope Stated Complaint: SOB x 1 week Time Seen by Provider: 05/10/25 10:21 Source: EMS Mode of arrival: EMS History of Present Illness HPI Narrative: Patient has history of hypertension hyperlipidemia diabetes. No prior history arrhythmia heart attack strokes. Patient is a smoker. No family history of arrhythmia or heart attacks. Patient returns here after similar episode, seen here 8 days ago for near-syncope dizziness and sweaty sensation. Patient had reassuring EKG troponin x2 CT angiogram chest, CT abdomen pelvis with no acute finding. Patient states she has been doing well since that visit. However she got up this morning and felt fine symptoms of palpitations dizziness sweaty and near syncope. Patient never had chest pain back pain headache. Patient brought here by ambulance. Patient has no symptoms at this time. Vital signs are reassuring. EKG normal sinus rhythm normal EKG Related Data Home Medications ?Medication ?Instructions ?Recorded ?Confirmed simvastatin 20 mg tablet 20 mg PO HS ##0 06/04/16 04/14/25 omeprazole 20 mg capsule,delayed 20 mg PO DAILY 05/19/24 04/14/25 release metformin 500 mg tablet,extended 500 mg PO BID 06/05/24 04/14/25 release 24 hr semaglutide 2 mg/dose (8 mg/3 mL) 2 mg SUBCUT WEEKLY 06/05/24 04/14/25 subcutaneous pen injector (Ozempic) aspirin 81 mg tablet 81 mg PO DAILY 06/10/24 04/14/25 lisinopril 10 mg tablet 10 mg PO DAILY blood pressure 03/10/25 04/14/25 Previous Rx's ?Medication ?Instructions ?Recorded estradiol 0.01% (0.1 mg/gram) 1 g vaginal 3XW #42.5 grams 07/23/24 vaginal cream gabapentin 800 mg tablet 800 mg PO BEDTIME #30 tabs 01/27/25 oxycodone 5 mg tablet 5 mg PO Q8H PRN pain #20 tabs 04/14/25 Allergies Allergy/AdvReac Type Severity Reaction Status Date / Time No Known Drug Allergies Allergy Verified 04/14/25 13:47 Review of Systems Review of Systems Narrative: GENERAL: Negative chills, fatigue, malaise, fever, positive sweats. HEENT: Negative sinus pain, ear pain, sore throat RESPIRATORY: Negative dyspnea, cough CARDIOVASCULAR: Negative chest pain, positive palpitations GASTROINTESTINAL: Negative vomiting, nausea, abdominal pain : Negative dysuria, frequency, hematuria MUSCULOSKELETAL: Negative muscle or bony pain SKIN: Negative rash, skin lesions NEUROLOGIC: Negative weakness, numbness, positive dizziness ROS Unobtainable: All systems reviewed & are unremarkable except as noted in HPI and below Patient History Medical History (Updated 05/10/25 @ 14:54 by Raul Valentin MD) Stress incontinence, female Vaginal vault prolapse Diabetes HLD (hyperlipidemia) HTN (hypertension) Surgical History (Updated 07/23/24 @ 13:44 by Fawad Douglas MD) History of total hysterectomy with bilateral salpingo-oophorectomy (BSO) Social History household members: none alcohol intake: current Exam Narrative Exam Narrative: GENERAL: in no distress, not toxic not dyspneic HEAD: Normocephalic. EYES: Pupils equal round ENT: Mucous membranes moist. NECK: Trachea midline. CARDIOVASCULAR: Regular rate and rhythm RESPIRATORY: Clear to auscultation. Breath sounds equal bilaterally. No wheezes, rales, or rhonchi. GASTROINTESTINAL: Abdomen soft, non-tender BACK: No flank tenderness. EXTREMITIES: No gross deformities. NEURO: AOx4. Clear speech SKIN: Warm and dry PSYCH: Not anxious, is cooperative Initial Vital Signs Initial Vital Signs: Vital Signs Temperature 98 F 05/10/25 10:16 Pulse Rate 90 05/10/25 10:16 Respiratory Rate 24 05/10/25 10:16 Blood Pressure 127/67 05/10/25 10:16 Pulse Oximetry 99 05/10/25 10:16 Oxygen Delivery Method Room Air 05/10/25 10:16 Course Orders Ordered: Discontinued Medications Sodium Chloride (Normal Saline 0.9%) 1,000 mls @ 1,000 mls/hr IV BOLUS ONE Stop: 05/10/25 12:24 Last Infusion: 05/10/25 14:30 Dose: Infused Documented By: Admin: 05/10/25 12:06 Dose: 1,000 mls/hr Documented By: LASHAWN Vital Signs Vital signs: Vital Signs - 8 hr 05/10/25 10:16 05/10/25 10:17 05/10/25 10:17 Temperature 98 F Pulse Rate 90 91 H Respiratory Rate 24 Blood Pressure 127/67 127/67 Pulse Oximetry 99 94 Oxygen Delivery Method Room Air 05/10/25 10:30 05/10/25 10:30 05/10/25 11:00 Temperature Pulse Rate 93 H 82 Respiratory Rate 15 28 H Blood Pressure 114/56 L Pulse Oximetry 97 94 Oxygen Delivery Method 05/10/25 11:00 05/10/25 11:30 05/10/25 11:31 Temperature Pulse Rate 85 86 Respiratory Rate 18 23 Blood Pressure 109/77 Pulse Oximetry 95 96 Oxygen Delivery Method 05/10/25 11:31 05/10/25 11:59 05/10/25 11:59 Temperature Pulse Rate 89 Respiratory Rate 21 Blood Pressure 94/71 125/59 L Pulse Oximetry 96 Oxygen Delivery Method 05/10/25 12:00 05/10/25 12:00 05/10/25 12:30 Temperature Pulse Rate 87 84 Respiratory Rate 18 18 Blood Pressure 128/61 Pulse Oximetry 97 98 Oxygen Delivery Method 05/10/25 12:31 05/10/25 12:31 05/10/25 13:00 Temperature Pulse Rate 82 Respiratory Rate 15 Blood Pressure 143/67 H 114/82 Pulse Oximetry 98 Oxygen Delivery Method 05/10/25 13:00 05/10/25 13:30 05/10/25 13:30 Temperature Pulse Rate 79 76 Respiratory Rate 23 17 Blood Pressure 122/65 Pulse Oximetry 97 97 Oxygen Delivery Method 05/10/25 14:00 05/10/25 14:00 05/10/25 14:30 Temperature Pulse Rate 76 78 Respiratory Rate 20 18 Blood Pressure 119/69 Pulse Oximetry 96 94 Oxygen Delivery Method 05/10/25 15:00 05/10/25 15:00 Temperature Pulse Rate 82 Respiratory Rate 17 Blood Pressure 126/74 Pulse Oximetry 96 Oxygen Delivery Method MDM - Dizziness Lab Data 05/10/25 10:24 05/10/25 10:24 Labs: Lab Results 05/10/25 Range/Units 10:24 WBC 7.2 (4.5-11.0) X10^3/uL RBC 4.58 (4.0-5.2) X10^6/uL Hgb 14.6 (12.0-16.0) g/dL Hct 42.1 (36-46) % MCV 92.0 (80-100) fL MCH 32.0 (26-34) PG MCHC 34.8 (30-36) % RDW 12.2 (11.6-14.8) % Plt Count 210 (150-400) X10^3/uL Neut % (Auto) 65.9 (50-75) % Lymph % (Auto) 29.2 (25-40) % Ritchie % (Auto) 4.0 (3-14) % Eos % (Auto) 0.4 L (2-4) % Baso % (Auto) 0.5 (0-2) % Neut # (Auto) 4800 (7377-3144) /uL Lymph # (Auto) 2100 (9558-8762) /uL Ritchie # (Auto) 300 (0-900) /uL Eos # (Auto) 0 (0-450) /uL Baso # (Auto) 0 (0-100) /uL PT 11.0 (9.4-12.5) SECONDS INR 1.0 (0.9-1.3) APTT 27 (25.1-36.5) SECONDS Sodium 140 (137-145) mmol/L Potassium 3.9 (3.4-5.1) mmol/L Chloride 108 H (98-107) mmol/L Carbon Dioxide 18 L (22-32) mmol/L BUN 16 (7-17) mg/dL Creatinine 0.60 (0.52-1.04) mg/dL Estimated GFR > 60 (>60) mL/min BUN/Creatinine Ratio 26.7 H (6-22) Glucose 133 H (70-99) mg/dL Calcium 10.1 (8.4-10.2) mg/dL Magnesium 1.9 (1.6-2.3) mg/dL Total Bilirubin 0.5 (0.2-1.3) mg/dL AST 29 (14-36) IU/L ALT 29 (<35) IU/L Alkaline Phosphatase 57 (38-126) U/L Troponin I < 0.012 (0.01-0.034) ng/mL Total Protein 7.6 (6.3-8.2) g/dL Albumin 4.8 (3.5-5.0) g/dL Globulin 2.8 (1.7-4.1) g/dL Albumin/Globulin Ratio 1.7 (1.0-2.8) TSH 1.58 (0.47-4.68) uIU/mL Imaging Data CT scan - head: Radiologist's Impression: [address] [place] [address] CT Scan Report Signed Patient: Karrie Hernandez MR#: [id number] : 1960 Acct:[id number] Age/Sex: 65 / F Date of Service: 05/10/25 Loc: ED Accession Number: [id number] Procedure: CT head/brain wo/w con Ordering Provider: Raul Valentin MD PROCEDURE: CT HEAD/BRAIN WO/W CON INDICATIONS: Dizzy/ataxia TECHNIQUE: 4.5 mm thick angled axial sections acquired from the foramen magnum to the vertex before and after the administration of intravenous contrast, with coronal and sagittal reformats. For radiation dose reduction, the following was used: automated exposure control, adjustment of mA and/or kV according to patient size. COMPARISON: None. FINDINGS: Image quality: Excellent. CSF Spaces: Basal cisterns are patent. Extra-axial masslike lesion along the left cerebral convexity with impression on the frontal lobe and peripheral calcification measuring 4.5 x 4.3 x 1.5 centimeter. Ventricles are normal in size and shape. Brain: No midline shift. No intracranial bleeds or masses. No abnormal intracranial enhancement. Chapa-white interface appears normal. Diffuse cerebral volume loss. Intracranial atherosclerotic calcifications. Skull and face: Calvarium and visualized facial bones appear intact, without suspicious lesions. Sinuses: Visualized sinuses and mastoids are clear. IMPRESSION: No acute abnormality. 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 Meningioma or other extra-axial mass is felt much less likely. Dictated by: Frandy Dale M.D. on 05/10/2025 at 12:17 Approved by: Frandy Dale M.D. on 05/10/2025 at 12:32 CTA - brain/neck: Radiologist's Impression: [address] [address] [address] Scan Report Signed Patient: Karrie Hernandez MR#: [id number] : 1960 Acct:[id number] Age/Sex: 65 / F Date of Service: 05/10/25 Loc: ED Accession Number: [id number] Procedure: CT angio head and neck Ordering Provider: Raul Valentin MD PROCEDURE: CT ANGIO HEAD AND NECK INDICATIONS: Dizzy/ataxia TECHNIQUE: After the administration of intravenous contrast, 1 mm thick sections acquired from the aortic arch through the [place] of [place]. 3-dimensional amesyss-dokaaiyox-enmvypkfqd (MIP) and/or volume rendering reformats were acquired of the central intracranial vasculature and neck separately. For radiation dose reduction, the following was used: automated exposure control, adjustment of mA and/or kV according to patient size. COMPARISON: [facility], CT, CT HEAD/BRAIN WO/W CON, 05/10/2025, 11:50. FINDINGS: Image quality: Diagnostic HEAD ANGIOGRAPHY: Anterior circulation: ICAs: Moderate bilateral cavernous and supraclinoid calcifications. ACAs: Patent MCAs: Mild intracranial irregularities. No large vessel occlusion AComm: No aneurysm Venous sinuses: Patent overall on this arterial phase study Posterior circulation: Dominance: Equal Vertebral arteries: Patent Basilar artery: Patent PComms: No aneurysm museum librarian: Mild intracranial irregularities NECK ANGIOGRAPHY: Aortic arch and subclavian arteries: Mild calcifications CCAs: No stenosis, occlusion, or aneurysm. ICA origins (by NASCET criteria): Mild calcifications. No significant narrowing ICAs: Mild calcifications no significant narrowing ECAs: Origins are patent. Vertebral arteries: Hhxc-nx-dpdsqqoj calcifications at the left-sided origin. Overall patent. Soft tissues: 1 cm left parotid lesion is identified. No enlarged lymph nodes by size criteria. Lung apices: No apical pneumothorax. Bones: Cervical spinal hardware and degenerative changes. Partially evaluated peripherally calcified left frontal extra-axial lesion. Ethmoid air cell partial opacification. IMPRESSION: No large vessel occlusion or high-grade stenosis. Mild and moderate areas of atherosclerotic disease are seen, most notably in the cavernous carotids and left vertebral origin. Mild intracranial arterial irregularities probably intracranial involvement of atherosclerosis. Partially evaluated peripherally calcified left frontal extra-axial lesion again seen. 1 cm left parotid lesion, correlate nonurgent ultrasound Any quantitative measurements of stenosis were performed using NASCET criteria. Dictated by: Benedict Talbot M.D. on 05/10/2025 at 12:22 Approved by: Benedict Talbot M.D. on 05/10/2025 at 12:[address] head: Radiologist's Impression: [address] [address] [address] Scan Report Signed Patient: Karrie Hernandez MR#: [id number] : 1960 Acct:[id number] Age/Sex: 65 / F Date of Service: 05/10/25 Loc: ED Accession Number: [id number] Procedure: CT head/brain wo con Ordering Provider: Raul Valentin MD PROCEDURE: CT HEAD/BRAIN WO CON INDICATIONS: Subdural hematoma TECHNIQUE: Noncontrast 4.5 mm thick angled axial sections acquired from the foramen magnum to the vertex, with coronal and sagittal reformats. For radiation dose reduction, the following was used: automated exposure control, adjustment of mA and/or kV according to patient size. COMPARISON: [facility], CT, CT HEAD/BRAIN WO/W CON, 05/10/2025, 11:50. FINDINGS: Image quality: Diagnostic. CSF spaces: Basal cisterns are patent. Left frontal region extra-axial lesion with peripheral calcifications/ossification resulting in mass effect upon the left frontal lobe. In aggregate, this measures 5.0 x 2.1 x 4.9 cm. Grossly this is unchanged from the prior study. Ventricles are normal in size and shape. Brain: No midline shift. No intracranial mass effect or hemorrhage. Chapa-white matter interface is normal. Mild cerebral and cerebellar volume loss. Skull and face: Calvarium and visualized facial bones are intact, without suspicious lesions. Sinuses: Visualized sinuses and mastoids are clear. IMPRESSION: Persistent chronic left extra-axial collection with peripheral ossification/calcification. Resulting mass effect upon the left frontal lobe. Appearance is similar to most recent study. As before, this is thought represent a chronic subdural hematoma. Meningioma is also in the differential but felt to be less likely. No acute intracranial pathology. Dictated by: Felicitas Whitaker M.D. on 05/10/2025 at 15:40 Approved by: Felicitas Whitaker M.D. on 05/10/2025 at 15:54 [facility] Narrative Medical decision making narrative: Patient has history of hypertension hyperlipidemia diabetes. No prior history arrhythmia heart attack strokes. Patient is a smoker. No family history of arrhythmia or heart attacks. Patient returns here after similar episode, seen here 8 days ago for near-syncope dizziness and sweaty sensation. Patient had reassuring EKG troponin x2 CT angiogram chest, CT abdomen pelvis with no acute finding. Patient states she has been doing well since that visit. However she got up this morning and felt fine symptoms of palpitations dizziness sweaty and near syncope. Patient never had chest pain back pain headache. Patient brought here by ambulance. Patient has no symptoms at this time. Vital signs are reassuring. EKG normal sinus rhythm normal EKG MDM After history and exam, CBC CMP troponin EKG TSH magnesium, patient agrees at this time no further imaging indicated. Patient had extensive workup 8 days ago. Differential considered: Includes but not limited to SVT AFib a flutter bradycardia dehydration Medical records reviewed: ER visit here as well CTs and laboratory studies May 02, 2025 Lab Test results independently reviewed as above. Pertinent findings: WBC 7.2 hemoglobin 14.6 INR 1.0 sodium 140 potassium 3.9 BUN 16 creatinine 0.6 GFR greater than 60 glucose 133 troponin less than 0.012 TSH 1.58 Independently reviewed EKG normal sinus rhythm normal EKG Radiograph studies: CT head CT angiogram head and neck no acute finding, there is likely chronic calcified subdural hematoma on the left. Consultations: 2:52 p.m.. Spoke with [facility] neurosurgery, Dr. Aguilar this is likely incidental finding. Patient will need repeat CT 4 hours from the 1st 1 for comparison and no changes. They will follow up with patient in the clinic. Needs outpatient MRI of the brain. This not completely look like subdural. Re-evaluations: 1:[address] updated patient results. CT head likely incidental finding with subdural hematoma. Waiting call back from Neurosurgery [facility]. This is unlikely related to dizziness palpitations, reviewed their symptoms likely arrhythmia and needs outpatient Holter monitoring/Zio patch 3:00 p.m.. Updated patient and family at bedside, will need repeat CT for comparison for no changes. Knees outpatient MRI of the brain. [facility] neurosurgery services will be calling her for follow up appointment regarding this finding that is likely incidental. 4:07 p.m.. Updated patient and family repeat CT head results unchanged. Return precautions reviewed. Patient requested cardiology referral for outpatient Zio patch Holter monitor as she states difficult to see your family doctor. Return precautions reviewed. They desire discharge home. Discussion: IV contrast used for CT imaging. Appropriate for discharge home. CT head findings incidental. Patient needs outpatient Holter monitor session Zio patch likely source of her dizziness as it starts with palpitations. Return precautions reviewed. She desires discharge home. Diagnosis: Dizziness/palpitations Discharge Plan Departure Patient Disposition: Home Clinical Impression: Palpitation Instructions: DI for Arrhythmias, DI for Palpitations Activity Restrictions/Additional Instructions: Your exam and laboratory studies are reassuring. Please see your family doctor or call provided cardiology services for outpatient Holter monitor/Zio patch. Neurosurgery services with [facility] was contacted today. They will contact you this week for follow up appointment regarding the findings on CAT scan of your head. You will need to schedule an outpatient MRI of the brain with there services or your family doctor. No new medications are indicated. Return if worse if any questions or concerns. Prescriptions: No Action simvastatin 20 MG tablet 20 mg PO HS Qty: 0 gabapentin 800 mg tablet 800 mg PO BEDTIME Qty: 30 2RF omeprazole 20 mg capsule,delayed release(DR/EC) 20 mg PO DAILY estradiol 0.01 % (0.1 mg/gram) cream 1 g vaginal 3XW Qty: 42.5 12RF Rx Instructions: Apply 1 g PV hs x7 days, then PV hs 3 nights weekly metformin 500 mg tablet extended release 24 hr 500 mg PO BID Ozempic 2 mg/dose (8 mg/3 mL) pen injector 2 mg SUBCUT WEEKLY aspirin 81 mg Tablet 81 mg PO DAILY lisinopril 10 mg tablet 10 mg PO DAILY oxycodone 5 mg tablet 5 mg PO Q8H PRN (Reason: pain) Qty: 20 0RF Rx Instructions: postop med Referrals: Jacque Cervantes DO [Physician, Cardiology] Judith Zuniga ARNP [Primary Care Provider, Nursing] Stand Alone Forms: Patient Portal/API, Work Release Note
[2025-05-10 10:53] LABS: Add Manual Diff / Slide Review NO; Hematocrit 42.1 % (36-46); Hemoglobin 14.6 g/dL (12.0-16.0); Lymphocytes Absolute Auto 2100 /uL (1100-4500); Mean Corpuscular HGB Conc 34.8 % (30-36); Mean Corpuscular Hemoglobin 32.0 PG (26-34); Mean Corpuscular Volume 92.0 fL (80-100); Platelet Count 210 X10^3/uL (150-400)
[2025-05-10 10:54] LABS: INR 1.0 (0.9-1.3); Prothrombin Time 11.0 SECONDS (9.4-12.5)
[2025-05-10 10:57] LABS: PTT Partial Thromboplastin Tim 27 SECONDS (25.1-36.5)
[2025-05-10 10:59] LABS: Alanine Aminotransferase 29 IU/L (<35); Albumin 4.8 g/dL (3.5-5.0); Albumin Globulin Ratio 1.7 (1.0-2.8); Alkaline Phosphatase 57 U/L (38-126); Blood Urea Nitrogen 16 mg/dL (7-17); Calcium 10.1 mg/dL (8.4-10.2); Carbon Dioxide 18 mmol/L (22-32); Chloride 108 mmol/L (98-107); Estimated Glomerular Filt Rate > 60 mL/min (>60); Globulin 2.8 g/dL (1.7-4.1); Glucose 133 mg/dL (70-99); HEMOLYSIS < 15 (0-50); Magnesium 1.9 mg/dL (1.6-2.3); Potassium 3.9 mmol/L (3.4-5.1); Sodium 140 mmol/L (137-145); Total Protein 7.6 g/dL (6.3-8.2)
[2025-05-10 11:11] LABS: Troponin I < 0.012 ng/mL (0.01-0.034)
--- NOTE | 2025-05-10 11:24 | DI.CT.S_ITS ---
PROCEDURE: CT HEAD/BRAIN WO/W CON INDICATIONS: Dizzy/ataxia TECHNIQUE: 4.5 mm thick angled axial sections acquired from the foramen magnum to the vertex before and after the administration of intravenous contrast, with coronal and sagittal reformats. For radiation dose reduction, the following was used: automated exposure control, adjustment of mA and/or kV according to patient size. COMPARISON: None. FINDINGS: Image quality: Excellent. CSF Spaces: Basal cisterns are patent. Extra-axial masslike lesion along the left cerebral convexity with impression on the frontal lobe and peripheral calcification measuring 4.5 x 4.3 x 1.5 centimeter. Ventricles are normal in size and shape. Brain: No midline shift. No intracranial bleeds or masses. No abnormal intracranial enhancement. Chapa-white interface appears normal. Diffuse cerebral volume loss. Intracranial atherosclerotic calcifications. Skull and face: Calvarium and visualized facial bones appear intact, without suspicious lesions. Sinuses: Visualized sinuses and mastoids are clear. IMPRESSION: No acute abnormality. 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 Meningioma or other extra-axial mass is felt much less likely. Dictated by: Frandy Dale M.D. on 05/10/2025 at 12:17 Approved by: Frandy Dlae M.D. on 05/10/2025 at 12:32
--- NOTE | 2025-05-10 11:24 | DI.CT.S_ITS ---
PROCEDURE: CT ANGIO HEAD AND NECK INDICATIONS: Dizzy/ataxia TECHNIQUE: After the administration of intravenous contrast, 1 mm thick sections acquired from the aortic arch through the [place] of [place]. 3-dimensional rorxwan-lmhythlzn-ufthymfxrb (MIP) and/or volume rendering reformats were acquired of the central intracranial vasculature and neck separately. For radiation dose reduction, the following was used: automated exposure control, adjustment of mA and/or kV according to patient size. COMPARISON: [facility], CT, CT HEAD/BRAIN WO/W CON, 05/10/2025, 11:50. FINDINGS: Image quality: Diagnostic HEAD ANGIOGRAPHY: Anterior circulation: ICAs: Moderate bilateral cavernous and supraclinoid calcifications. ACAs: Patent MCAs: Mild intracranial irregularities. No large vessel occlusion AComm: No aneurysm Venous sinuses: Patent overall on this arterial phase study Posterior circulation: Dominance: Equal Vertebral arteries: Patent Basilar artery: Patent PComms: No aneurysm mill roll rewinder: Mild intracranial irregularities NECK ANGIOGRAPHY: Aortic arch and subclavian arteries: Mild calcifications CCAs: No stenosis, occlusion, or aneurysm. ICA origins (by NASCET criteria): Mild calcifications. No significant narrowing ICAs: Mild calcifications no significant narrowing ECAs: Origins are patent. Vertebral arteries: Iobd-jn-ddfoveej calcifications at the left-sided origin. Overall patent. Soft tissues: 1 cm left parotid lesion is identified. No enlarged lymph nodes by size criteria. Lung apices: No apical pneumothorax. Bones: Cervical spinal hardware and degenerative changes. Partially evaluated peripherally calcified left frontal extra-axial lesion. Ethmoid air cell partial opacification. IMPRESSION: No large vessel occlusion or high-grade stenosis. Mild and moderate areas of atherosclerotic disease are seen, most notably in the cavernous carotids and left vertebral origin. Mild intracranial arterial irregularities probably intracranial involvement of atherosclerosis. Partially evaluated peripherally calcified left frontal extra-axial lesion again seen. 1 cm left parotid lesion, correlate nonurgent ultrasound Any quantitative measurements of stenosis were performed using NASCET criteria. Dictated by: Benedict Talbot M.D. on 05/10/2025 at 12:22 Approved by: Benedict Talbot M.D. on 05/10/2025 at 12:29
[2025-05-10 11:35] LABS: Thyroid Stimulating Hormone 1.58 uIU/mL (0.47-4.68)
[2025-05-10] MEDS: SODIUM CHLORIDE 0.9% 1,000 ML 1000 ML IV (12:06)
--- NOTE | 2025-05-10 14:51 | DI.CT.S_ITS ---
PROCEDURE: CT HEAD/BRAIN WO CON INDICATIONS: Subdural hematoma TECHNIQUE: Noncontrast 4.5 mm thick angled axial sections acquired from the foramen magnum to the vertex, with coronal and sagittal reformats. For radiation dose reduction, the following was used: automated exposure control, adjustment of mA and/or kV according to patient size. COMPARISON: [facility], CT, CT HEAD/BRAIN WO/W CON, 05/10/2025, 11:50. FINDINGS: Image quality: Diagnostic. CSF spaces: Basal cisterns are patent. Left frontal region extra-axial lesion with peripheral calcifications/ossification resulting in mass effect upon the left frontal lobe. In aggregate, this measures 5.0 x 2.1 x 4.9 cm. Grossly this is unchanged from the prior study. Ventricles are normal in size and shape. Brain: No midline shift. No intracranial mass effect or hemorrhage. Chapa- white matter interface is normal. Mild cerebral and cerebellar volume loss. Skull and face: Calvarium and visualized facial bones are intact, without suspicious lesions. Sinuses: Visualized sinuses and mastoids are clear. IMPRESSION: Persistent chronic left extra-axial collection with peripheral ossification/calcification. Resulting mass effect upon the left frontal lobe. Appearance is similar to most recent study. As before, this is thought represent a chronic subdural hematoma. Meningioma is also in the differential but felt to be less likely. No acute intracranial pathology. Dictated by: Felicitas Whitaker M.D. on 05/10/2025 at 15:40 Approved by: Felicitas Whitaker M.D. on 05/10/2025 at 15:54
--- NOTE | 2025-05-10 15:38 | PC.NURSE ---
No changes from initial assessment
== END 2025-05-10 16:17 | disposition home or self-care (01) ==
PROVIDERS: Emergency Provider Emergency Medicine; PCP Nurse Practitioner Family
DX: R00.2 Palpitations (principal); R42 Dizziness and giddiness; R06.02 Shortness of breath
CPT/HCPCS: 36415; 70450; 70470; 70496; 70498; 80053; 83735; 84443; 84484; 85025; 85610; 85730; 93005; 93010; 96360; 99284; J7030; Q9967